=== PATIENT | female | born 1995 ===

== ENCOUNTER 2022-02-04 12:36 | Emergency (ER) | payer SELFPAY ==
[~2022-02-04] VITALS: Ht 160 cm; Wt 53.9 kg
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
[2022-02-04 13:08] LABS: HEMATOCRIT 41 % (35-52); HEMOGLOBIN 14.8 g/dL (11.5-16.0); MEAN CORPUSCULAR HEMOGLOBIN 33 pg (25-34); MEAN CORPUSCULAR HGB CONC 37 g/dL (32-36); MEAN CORPUSCULAR VOLUME 91 fL (80-99); MEAN PLATELET VOLUME 8.7 fL (9.0-12.2); PLATELET COUNT 280 10^3/uL (130-400); WHITE BLOOD COUNT 14.8 10^3/uL (4.3-11.0)
[2022-02-04 13:09] LABS: BASOPHILS # (AUTO) 0.1 10^3/uL (0.0-0.1); BASOPHILS % (AUTO) 0 % (0-10); EOSINOPHILS % (AUTO) 0 % (0-10); LYMPHOCYTES # (AUTO) 0.3 X 10^3 (1.0-4.0); LYMPHOCYTES % (AUTO) 2 % (12-44); MONOCYTES # (AUTO) 0.3 X 10^3 (0.0-1.0); MONOCYTES % (AUTO) 2 % (0-12); NEUTROPHILS % (AUTO) 95 % (42-75)
[2022-02-04] MEDS ORDERED: TETANUS,DIPTH,PERTUSS P/F (BOOSTRIX) 0.5 ML VIAL IM ONE (13:15)
[2022-02-04] MEDS ORDERED: ceFAZolin INJECTION 1,000 MG VIAL IV ONE (13:30)
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
[2022-02-04 13:39] LABS: ALANINE AMINOTRANSFERASE 11 U/L (0-55); ALBUMIN 4.6 GM/DL (3.2-4.5); ALKALINE PHOSPHATASE 65 U/L (40-136); BILIRUBIN,TOTAL 0.7 MG/DL (0.1-1.0); BUN/CREATININE RATIO 11; CALCIUM 9.8 MG/DL (8.5-10.1); CARBON DIOXIDE 19 MMOL/L (21-32); CHLORIDE 92 MMOL/L (98-107); CREATININE SERUM 1.14 MG/DL (0.60-1.30); GFR ESTIMATED 68; GLUCOSE 123 MG/DL (70-105); MAGNESIUM 1.6 MG/DL (1.6-2.4); POTASSIUM 3.4 MMOL/L (3.6-5.0); SODIUM 137 MMOL/L (135-145); TOTAL PROTEIN 7.4 GM/DL (6.4-8.2)
[2022-02-04 13:40] LABS: ACETAMINOPHEN < 10 UG/ML (10-30); SALICYLATE < 0.3 MG/DL (5.0-20.0)
[2022-02-04 13:41] LABS: BAND NEUTROPHILS 6 %; BASOPHILS % (MANUAL) 0 %; EOSINOPHILS % (MANUAL) 0 %; LYMPHOCYTES % (MANUAL) 0 %; MONOCYTES % (MANUAL) 2 %; NEUTROPHILS % (MANUAL) 92 %
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
[2022-02-04 14:01] LABS: HCG,QUALITATIVE URINE NEGATIVE (NEGATIVE)
[2022-02-04] MEDS ORDERED: NS IV 1000 ML 1,000 ML IV STA (14:01)
[2022-02-04 14:11] LABS: CLARITY,URINE CLOUDY; COLOR,URINE YELLOW; GLUCOSE, URINE (UA) NEGATIVE (NEGATIVE); PH,URINE 5.5 (5-9); PROTEIN,URINE TRACE (NEGATIVE)
[2022-02-04 14:12] LABS: BILIRUBIN,URINE 1+ (NEGATIVE); KETONES,URINE 3+ (NEGATIVE); LEUKOCYTE ESTERASE ,URINE NEGATIVE (NEGATIVE); NITRITE,URINE NEGATIVE (NEGATIVE)
[2022-02-04 14:13] LABS: BACTERIA,URINE NEGATIVE /HPF; CANNABINOID SCREEN, URINE POSITIVE (NEGATIVE); RBC,URINE 50-100 /HPF; SQUAMOUS EPITHELIAL CELL,UR 0-2 /HPF; WBC,URINE RARE /HPF
[2022-02-04 14:14] LABS: AMPHETAMINE SCREEN, URINE NEGATIVE (NEGATIVE); BARBITURATE SCREEN URINE NEGATIVE (NEGATIVE); BENZODIAZEPINES SCREEN URINE NEGATIVE (NEGATIVE); COCAINE SCREEN URINE NEGATIVE (NEGATIVE); METHADONE STAT NEGATIVE (NEGATIVE); OPIATE SCREEN URINE NEGATIVE (NEGATIVE); OXYCODONE STAT NEGATIVE (NEGATIVE); PROPOXYPHENE STAT NEGATIVE (NEGATIVE); TRICYCLIC ANTIDEPRESSANTS SCRE NEGATIVE (NEGATIVE)
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
[2022-02-04 16:20] VITALS: BP 122/68
== END 2022-02-04 16:57 | disposition short-term general hospital (02) ==
LOC: EDUNIT# 12:36 → ER FS 12:37
DX: S01.532A Puncture wound without foreign body of oral cavity, initial encounter (principal); T14.91XA Suicide attempt, initial encounter
CPT/HCPCS: 36415; 70450; 70486; 74176; 80053; 80306; 80320; 80329; 81000; 83605; 83735; 84145; 84703; 85007; 85027; 86141; 90715; 99291